=== PATIENT | female | born 1960 | race Caucasian/White ===

== ENCOUNTER 2019-05-21 11:13 | Emergency (ER) | payer MEDICAID ==
[~2019-05-21] VITALS: Ht 157.5 cm; Wt 83.0 kg
[2019-05-21 11:20] VITALS: BP 167/86
--- NOTE | 2019-05-21 11:23 | NUR ---
58/F BIB FAMILY C/O LT FOOT PAIN & SWELLING X 4 DAYS. DENIES INJURY. TOOK PRESCRIBED 800MG IBUPROFEN 10 MIN TRUST ADMINISTRATOR. PATIENT STATES PAIN OF 10/10 AT THIS TIME.PATIENT POSITIONED FOR COMFORT; HOB ELEVATED; BEDRAILS UP X1; BED DOWN. ER MD MADE AWARE OF PT STATUS.
--- NOTE | 2019-05-21 11:27 | NUR ---
Patient being evaluated by DR CAPPS at bedside.
--- NOTE | 2019-05-21 11:50 | NUR ---
DR CAPPS RE-EVALUATING PT AT BEDSIDE.
[2019-05-21 12:05] VITALS: BP 167/86
== END 2019-05-21 12:06 | disposition home or self-care (01) ==
LOC: MED 11:13
DX: M72.2 Plantar fascial fibromatosis (principal); Z85.3 Personal history of malignant neoplasm of breast; Z98.890 Other specified postprocedural states
CPT/HCPCS: 73630; 99283; Q0092

== ENCOUNTER 2020-08-09 14:16 | Emergency (ER) | payer MEDICAID ==
[~2020-08-09] VITALS: Ht 157.5 cm; Wt 81.2 kg
[2020-08-09 14:22] VITALS: BP 157/93
[2020-08-09 16:56] LABS: BASOPHILS # (AUTO) 0.1 K/uL (0.00-0.22); BASOPHILS % (AUTO) 0.8 % (0.0-2.0); EOSINOPHILS # (AUTO) 0.1 K/uL (0-0.4); EOSINOPHILS % (AUTO) 1.1 % (0.0-4.0); HEMATOCRIT 40.2 % (36-48); HEMOGLOBIN 13.6 g/dL (12.0-16.0); LYMPHOCYTES # (AUTO) 3.7 K/uL (2.5-16.5); LYMPHOCYTES % (AUTO) 36.8 % (20.5-51.1); MEAN CORPUSCULAR HEMOGLOBIN 29 pg (27-31); MEAN CORPUSCULAR HGB CONC 34 g/dL (33-37); MEAN CORPUSCULAR VOLUME 86.6 fL (80-94); MONOCYTES # (AUTO) 0.7 K/uL (0.8-1.0); MONOCYTES % (AUTO) 6.6 % (1.7-9.3); NEUTROPHILS # (AUTO) 5.5 K/uL (1.8-7.7); NEUTROPHILS % (AUTO) 54.7 % (42.2-75.2); PLATELET COUNT (AUTO) 191 K/uL (140-450); RED BLOOD CELL COUNT(AUTO) 4.65 MIL/uL (4.20-5.40); WHITE BLOOD COUNT (AUTO) 10.1 K/uL (4.8-10.8)
[2020-08-09 17:17] LABS: ANION GAP 11.2 (8-16); CARBON DIOXIDE 27.5 mmol/L (21-32); CREATININE 0.8 mg/dL (0.6-1.3); POTASSIUM 4.7 mmol/L (3.5-5.1); TOTAL BILIRUBIN 0.4 mg/dL (0.0-1.0)
[2020-08-09 18:07] VITALS: BP 157/93
--- NOTE | 2020-08-09 18:07 | NUR ---
Patient discharged with v/s stable. Written and verbal after care instructions given and explained. Patient alert, oriented and verbalized understanding of instructions. Ambulatory with steady gait. All questions addressed prior to discharge. ID band removed. Patient advised to follow up with PMD. Rx of Colace given. Patient educated on indication of medication including possible reaction and side effects. Opportunity to ask questions provided and answered.
== END 2020-08-09 18:07 | disposition home or self-care (01) ==
LOC: MED 14:16
DX: K52.89 Other specified noninfective gastroenteritis and colitis (principal); K64.4 Residual hemorrhoidal skin tags
CPT/HCPCS: 36415; 80053; 83690; 84484; 85025; 99285

== ENCOUNTER 2020-10-25 16:04 | Emergency (ER) | payer MEDICAID ==
[~2020-10-25] VITALS: Ht 157.5 cm; Wt 76.7 kg
[2020-10-25 16:26] VITALS: BP 120/73
--- NOTE | 2020-10-25 17:21 | NUR ---
PATIENT AMBULATED TO BED 12 WITH STEADY GAIT
--- NOTE | 2020-10-25 17:30 | NUR ---
59 Y/O F BIB SELF FROM HOME, PATIENT PRESENTS TO ED WITH R ARM PAIN AND ITCHING THAT RADIATES TO THE REST OF THE BODY. PT STATES SHE HAD HER SECOND DOSE OF THE PFIZER ON HER R ARM AND HAS BEEN HAVING HIVES ON HER BODY AND ITCHING. PT HAS NO EDEMA, SWELLING, OR REDNESS AT SITE OR ON HER EXTREMITIES. DENIES N/V/D; SKIN IS PINK/WARM/DRY; AAOX4 WITH EVEN AND STEADY GAIT; LUNGS CLEAR BL; HR EVEN AND REGULAR; PT DENIES ANY FEVER, CP, SOB, OR COUGH AT THIS TIME; PATIENT STATES PAIN OF 5/10 AT THIS TIME; VSS; PATIENT POSITIONED FOR COMFORT; HOB ELEVATED; BEDRAILS UP X2; BED DOWN. ER MADE AWARE OF PT STATUS. PMH: BREAST CANCER NKA MED: DOTTIEOPHEN
[2020-10-25] MEDS ORDERED: IBUP-2213 PO (19:06)
[2020-10-25] MEDS ORDERED: CEPH-588 PO (19:06)
--- NOTE | 2020-10-25 19:07 | NUR ---
REPORT RECEIVED FROM IKE HARDWICK FOR TRANSFER OF CARE.
--- NOTE | 2020-10-25 19:08 | NUR ---
REPORT GIVEN TO MILADYS RAMIRES. TRANSFER OF CARE AT THIS TIME.
[2020-10-25 19:30] VITALS: BP 139/84
--- NOTE | 2020-10-25 19:30 | NUR ---
Patient discharged with v/s stable. Written and verbal after care instructions given and explained. Patient alert, oriented and verbalized understanding of instructions. Ambulatory with steady gait. All questions addressed prior to discharge. ID band removed. Patient advised to follow up with PMD. Rx of KEFLEX, IBUPROFEN given. Patient educated on indication of medication including possible reaction and side effects. Opportunity to ask questions provided and answered.
--- NOTE | 2020-10-28 16:24 | NUR ---
LATE ENTRY---Culture results received from lab. Results shown to . No new orders needed at this time. Treatment appropriate.
== END 2020-10-25 19:30 | disposition home or self-care (01) ==
LOC: MED 16:04
DX: T88.7XXA Unspecified adverse effect of drug or medicament, initial encounter (principal); N39.0 Urinary tract infection, site not specified; T50.B95A Adverse effect of other viral vaccines, initial encounter; Y92.89 Other specified places as the place of occurrence of the external cause
CPT/HCPCS: 81002; 87086; 99283

== ENCOUNTER 2020-12-24 14:03 | Emergency (ER) | payer MEDICAID ==
[~2020-12-24] VITALS: Ht 157.5 cm; Wt 77.6 kg
[~2020-12-24 14:03] MED LIST: CEPH-588 PO; IBUP-2213 PO
[2020-12-24 14:13] VITALS: BP 156/75
--- NOTE | 2020-12-24 14:20 | NUR ---
Patient to lobby waiting for bed to be available.
--- NOTE | 2020-12-24 14:25 | NUR ---
EMT at bedside for EKG.
--- NOTE | 2020-12-24 14:30 | NUR ---
60 YEAR OLD FEMALE COMPLAINS OF CHEST PAIN AND HEADACHE X 4 DAYS. PT DENIES SOB, HAS COUGH. PT PLACED ON MONITOR WITH VS STABLE. PT AOX4, BREATHING EVEN AND UNLABORED, SKIN WARM AND DRY. BED IN LOWEST POSITION, LOCKED, BED RAIL UPX1. PMH - BREAST CANCER ALLERGIES - NKA
--- NOTE | 2020-12-24 14:41 | NUR ---
pt ambulated to bed 09.
--- NOTE | 2020-12-24 15:18 | NUR ---
MARCI SWAB SENT TO LAB
[2020-12-24 15:35] LABS: BASOPHILS # (AUTO) 0.1 K/uL (0.00-0.22); BASOPHILS % (AUTO) 0.5 % (0.0-2.0); EOSINOPHILS # (AUTO) 0.1 K/uL (0-0.4); EOSINOPHILS % (AUTO) 1.3 % (0.0-4.0); HEMATOCRIT 39.4 % (36-48); HEMOGLOBIN 13.3 g/dL (12.0-16.0); LYMPHOCYTES # (AUTO) 2.1 K/uL (2.5-16.5); LYMPHOCYTES % (AUTO) 21.4 % (20.5-51.1); MEAN CORPUSCULAR HEMOGLOBIN 30 pg (27-31); MEAN CORPUSCULAR HGB CONC 34 g/dL (33-37); MONOCYTES # (AUTO) 0.9 K/uL (0.8-1.0); MONOCYTES % (AUTO) 9.2 % (1.7-9.3); NEUTROPHILS # (AUTO) 6.7 K/uL (1.8-7.7); NEUTROPHILS % (AUTO) 67.6 % (42.2-75.2); PLATELET COUNT (AUTO) 177 K/uL (140-450); RED BLOOD CELL COUNT(AUTO) 4.48 MIL/uL (4.20-5.40); RED CELL DISTRIBUTION WIDTH 13.4 % (11.6-13.7)
[2020-12-24 15:49] LABS: ALBUMIN 3.8 g/dL (3.4-5.0); ANION GAP 11.1 (8-16); CARBON DIOXIDE 26.8 mmol/L (21-32); CREATININE 0.8 mg/dL (0.6-1.3); POTASSIUM 3.9 mmol/L (3.5-5.1); TOTAL BILIRUBIN 0.3 mg/dL (0.0-1.0)
[2020-12-24 16:45] VITALS: BP 145/71
--- NOTE | 2020-12-24 16:45 | NUR ---
Patient discharged with v/s stable. Written and verbal after care instructions about cough given and explained. Patient verbalized understanding. Ambulatory with steady gait. All questions addressed prior to discharge. Advised to follow up with PMD.
== END 2020-12-24 16:45 | disposition home or self-care (01) ==
LOC: MED 14:03
DX: R05 Cough (principal); Z20.822 Contact with and (suspected) exposure to COVID-19; R09.89 Other specified symptoms and signs involving the circulatory and respiratory systems; R09.81 Nasal congestion; Z79.899 Other long term (current) drug therapy; Z98.890 Other specified postprocedural states; Z90.710 Acquired absence of both cervix and uterus; Z85.3 Personal history of malignant neoplasm of breast
CPT/HCPCS: 36415; 71045; 80053; 84484; 85025; 93005; 99285

== ENCOUNTER 2021-01-21 15:29 | Emergency (ER) | payer MEDICAID ==
[~2021-01-21] VITALS: Ht 157.5 cm; Wt 78.9 kg
[2021-01-21 15:47] VITALS: BP 135/80
--- NOTE | 2021-01-21 18:13 | NUR ---
Lab at bedside.
[2021-01-21 18:34] LABS: BASOPHILS % (AUTO) 0.4 % (0.0-2.0); EOSINOPHILS # (AUTO) 0.2 K/uL (0-0.4); HEMATOCRIT 40.9 % (36-48); HEMOGLOBIN 13.6 g/dL (12.0-16.0); LYMPHOCYTES # (AUTO) 2.3 K/uL (2.5-16.5); LYMPHOCYTES % (AUTO) 27.7 % (20.5-51.1); MEAN CORPUSCULAR HEMOGLOBIN 30 pg (27-31); MEAN CORPUSCULAR HGB CONC 33 g/dL (33-37); MEAN CORPUSCULAR VOLUME 88.9 fL (80-94); MONOCYTES # (AUTO) 0.6 K/uL (0.8-1.0); MONOCYTES % (AUTO) 7.6 % (1.7-9.3); NEUTROPHILS # (AUTO) 5.1 K/uL (1.8-7.7); NEUTROPHILS % (AUTO) 62.3 % (42.2-75.2); PLATELET COUNT (AUTO) 193 K/uL (140-450); RED BLOOD CELL COUNT(AUTO) 4.59 MIL/uL (4.20-5.40); RED CELL DISTRIBUTION WIDTH 13.4 % (11.6-13.7); WHITE BLOOD COUNT (AUTO) 8.2 K/uL (4.8-10.8)
--- NOTE | 2021-01-21 18:47 | NUR ---
Pt ambulated to bed 07.
[2021-01-21 19:04] LABS: ALBUMIN 3.8 g/dL (3.4-5.0); CARBON DIOXIDE 26.8 mmol/L (21-32); CREATININE 0.8 mg/dL (0.6-1.3); TOTAL BILIRUBIN 0.4 mg/dL (0.0-1.0)
[2021-01-21 19:09] LABS: ANION GAP 14.5 (8-16); POTASSIUM 4.3 mmol/L (3.5-5.1)
--- NOTE | 2021-01-21 19:55 | NUR ---
60 YO/F BIB SELF W CO R SIDED FLANK PAIN SHARP 10/10 RADIATING TO ABDOMEN THAT WORSENS W MOVEMENT BEGINNING AT 0800 TODAY. PATIENT ALSO REPORTS URINARY FREQUENCY AND RETENTION, DENIES BURNING URINATION. PATIENT ALSO REPORTS L LEG PAIN AND SWELLING 8/10 THAT WORSENS W MOVEMENT. PATIENT DENIES FEVER, N/V/D. DENIES CHEST PAIN OR SOB. PATIENT DENIES ANY INJURIES. BOWEL SOUNDS PRESENT THROUGH OUT. SKIN WARM AND DRY. CAP REFILS <3SEC UPPER AND LOWER EXTREMITIES. PATIENT LAYING IN BED LOCKED IN LOWEST POSITION, X1 SIDE RAIL UP. BREATHING EVEN AND UNLABORED. CONNECTED TO MONITOR W VSS. PMH: L BREAST CANCER NKA
[2021-01-21 20:19] LABS: APPEARANCE,URINE CLEAR (CLEAR); BILIRUBIN,URINE NEGATIVE (NEGATIVE); BLOOD, URINE NEGATIVE (NEGATIVE); COLOR,URINE YELLOW (YELLOW); LEUKOCYTE ESTERASE ,URINE NEGATIVE (NEGATIVE); NITRITE, URINE NEGATIVE (NEGATIVE); UGLUCOSE NEGATIVE (NEGATIVE)
[2021-01-21] MEDS ORDERED: NACL 0.9% 1,000 ML IV ONE (20:30)
[2021-01-21] MEDS ORDERED: ONDANSETRON 4 MG/2 ML VIAL IVP ONE (20:30)
[2021-01-21] MEDS ORDERED: MORPHINE SULFATE 4 MG/ML SYR IVP ONE (20:30)
[2021-01-21] MEDS ORDERED: ACET-1182 PO (22:07)
[2021-01-21] MEDS ORDERED: IBUP-2213 PO (22:07)
--- NOTE | 2021-01-21 22:12 | NUR ---
PATIENT AMBULATED TO BATHROOM W STEADY GAIT.
[2021-01-21 23:00] VITALS: BP 149/73
--- NOTE | 2021-01-21 23:00 | NUR ---
Patient discharged with v/s stable. Written and verbal after care instructions given and explained. Patient alert, oriented and verbalized understanding of instructions. Ambulatory with steady gait. All questions addressed prior to discharge. ID band removed. Patient advised to follow up with PMD. Rx of ACETAMINOPHEN, IBUPROFEN given. Patient educated on indication of medication including possible reaction and side effects. Opportunity to ask questions provided and answered.
== END 2021-01-21 23:00 | disposition home or self-care (01) ==
LOC: MED 15:29
DX: R10.9 Unspecified abdominal pain (principal); M79.605 Pain in left leg; Z85.3 Personal history of malignant neoplasm of breast; Z90.710 Acquired absence of both cervix and uterus; Z79.899 Other long term (current) drug therapy
CPT/HCPCS: 36415; 74177; 80053; 81003; 83690; 85025; 87086; 93971; 96361; 96374; 96375; 99285; J2270; J2405; J7030; Q9967

== ENCOUNTER 2021-05-01 22:08 | Emergency (ER) | payer MEDICAID ==
[~2021-05-01] VITALS: Ht 157.5 cm; Wt 68.0 kg
[~2021-05-01 22:08] MED LIST changes: +ACET-1182 PO
[2021-05-01 22:28] VITALS: BP 150/77
--- NOTE | 2021-05-01 22:36 | NUR ---
PATIENT TO THE BATHROOM AMBULATORY AND WILL GO TO THE LOBBY
[2021-05-01] MEDS ORDERED: NACL 0.9% 1,000 ML IV ONE (23:30)
[2021-05-01 23:54] LABS: BASOPHILS # (AUTO) 0.1 K/uL (0.00-0.22); BASOPHILS % (AUTO) 0.5 % (0.0-2.0); EOSINOPHILS # (AUTO) 0.2 K/uL (0-0.4); EOSINOPHILS % (AUTO) 1.8 % (0.0-4.0); HEMATOCRIT 39.5 % (36-48); HEMOGLOBIN 13.2 g/dL (12.0-16.0); LYMPHOCYTES # (AUTO) 3.9 K/uL (2.5-16.5); LYMPHOCYTES % (AUTO) 35.4 % (20.5-51.1); MEAN CORPUSCULAR HEMOGLOBIN 29 pg (27-31); MEAN CORPUSCULAR HGB CONC 33 g/dL (33-37); MEAN CORPUSCULAR VOLUME 86.2 fL (80-94); MONOCYTES # (AUTO) 0.8 K/uL (0.8-1.0); NEUTROPHILS # (AUTO) 6.1 K/uL (1.8-7.7); NEUTROPHILS % (AUTO) 55.3 % (42.2-75.2); PLATELET COUNT (AUTO) 197 K/uL (140-450); RED BLOOD CELL COUNT(AUTO) 4.59 MIL/uL (4.20-5.40); RED CELL DISTRIBUTION WIDTH 13.4 % (11.6-13.7); WHITE BLOOD COUNT (AUTO) 11.1 K/uL (4.8-10.8)
[2021-05-01 23:54] LABS: APPEARANCE,URINE CLEAR (CLEAR); BILIRUBIN,URINE NEGATIVE (NEGATIVE); BLOOD, URINE NEGATIVE (NEGATIVE); COLOR,URINE YELLOW (YELLOW); LEUKOCYTE ESTERASE ,URINE TRACE (NEGATIVE); NITRITE, URINE NEGATIVE (NEGATIVE); UGLUCOSE NEGATIVE (NEGATIVE)
[2021-05-02 00:13] LABS: ALBUMIN 3.7 g/dL (3.4-5.0); ANION GAP 12.2 (8-16); CARBON DIOXIDE 29.7 mmol/L (21-32); POTASSIUM 4.9 mmol/L (3.5-5.1); TOTAL BILIRUBIN 0.3 mg/dL (0.0-1.0)
[2021-05-02] MEDS ORDERED: CEPH-588 PO (01:35)
[2021-05-02] MEDS ORDERED: ONDA-188 SL (01:35)
[2021-05-02] MEDS ORDERED: ACETAMINOPHEN EXTRA STRENGTH 500 MG TAB PO ONE (01:40)
[2021-05-02] MEDS ORDERED: ONDANSETRON 4 MG ODT PO ONE (01:40)
[2021-05-02] MEDS ORDERED: cephALEXin 500 MG CAP PO ONE (01:40)
[2021-05-02 01:55] VITALS: BP 132/72
--- NOTE | 2021-05-02 02:00 | NUR ---
PATIENT DC HOME STABLE NOT COMPLAINING OF PAIN VITALS SIGNS IN NORMAL LIMITS ALL DC INSTRUTION GAVE TO THE PATIENT AND EXPLAINED WE RECOMENDED TO SEE HER ONCOLOGYST //Sudheer RN
--- NOTE | 2021-05-05 00:27 | NUR ---
LATE ENTRY- NS BOLUS DISCONTINUED AT 0030
== END 2021-05-02 02:00 | disposition home or self-care (01) ==
LOC: MED 22:08
DX: N39.0 Urinary tract infection, site not specified (principal); Z20.822 Contact with and (suspected) exposure to COVID-19; R53.1 Weakness; Z85.9 Personal history of malignant neoplasm, unspecified; Z79.899 Other long term (current) drug therapy
CPT/HCPCS: 36415; 71045; 80053; 81001; 84484; 85025; 87086; 87426; 93005; 96360; 99285; J7030; Q0162

== ENCOUNTER 2021-10-31 19:34 | Emergency (ER) | payer MEDICAID ==
[~2021-10-31] VITALS: Ht 154.9 cm; Wt 80.7 kg
[~2021-10-31 19:34] MED LIST changes: +ONDA-188 SL
[2021-10-31 19:54] VITALS: BP 132/70
--- NOTE | 2021-10-31 20:00 | NUR ---
PATIENT TO THE BATHROOM FOR URINE COLLECTION
--- NOTE | 2021-10-31 20:05 | NUR ---
PT AMBULATED TO BED #6
--- NOTE | 2021-10-31 20:14 | NUR ---
LAB AT BEDSIDE
--- NOTE | 2021-10-31 20:21 | NUR ---
60 YO F BIB DAUGHTER FROM HOME W C/O OF HIGH BLOOD PRESSURE STARTED ON SUNDAY AND WENT TO CLINIC SUNDAY AND WAS GIVEN 12.5 HYDROCHLOROTHIAZIDE BUT THE MEDICATION CAUSES HER TO FEEL NAUSEATED. PT REPORTS COPPOLA, DIZZINESS, AND DIFFICULTY WALKING. PMH: DENIES NKDA
[2021-10-31 20:24] LABS: BASOPHILS # (AUTO) 0.1 K/uL (0.00-0.22); BASOPHILS % (AUTO) 0.7 % (0.0-2.0); EOSINOPHILS # (AUTO) 0.2 K/uL (0-0.4); EOSINOPHILS % (AUTO) 2.3 % (0.0-4.0); HEMOGLOBIN 13.8 g/dL (12.0-16.0); LYMPHOCYTES # (AUTO) 3.2 K/uL (2.5-16.5); LYMPHOCYTES % (AUTO) 31.3 % (20.5-51.1); MEAN CORPUSCULAR HEMOGLOBIN 28 pg (27-31); MEAN CORPUSCULAR HGB CONC 34 g/dL (33-37); MEAN CORPUSCULAR VOLUME 83.5 fL (80-94); MONOCYTES # (AUTO) 0.6 K/uL (0.8-1.0); MONOCYTES % (AUTO) 6.2 % (1.7-9.3); NEUTROPHILS % (AUTO) 59.5 % (42.2-75.2); PLATELET COUNT (AUTO) 231 K/uL (140-450); RED BLOOD CELL COUNT(AUTO) 4.91 MIL/uL (4.20-5.40); RED CELL DISTRIBUTION WIDTH 13.6 % (11.6-13.7); WHITE BLOOD COUNT (AUTO) 10.1 K/uL (4.8-10.8)
[2021-10-31 20:42] LABS: ALBUMIN 4.1 g/dL (3.4-5.0); ANION GAP 11.5 (8-16); CARBON DIOXIDE 29.3 mmol/L (21-32); CREATININE 0.8 mg/dL (0.6-1.3); POTASSIUM 3.8 mmol/L (3.5-5.1); TOTAL BILIRUBIN 0.5 mg/dL (0.0-1.0)
[2021-10-31] MEDS ORDERED: ONDANSETRON 4 MG TAB PO ONE (21:25)
[2021-10-31] MEDS ORDERED: KETOROLAC 60 MG/2 ML VIAL IM ONE (21:25)
[2021-10-31] MEDS ORDERED: MECLIZINE 25 MG TAB PO ONE (21:25)
[2021-10-31] MEDS ORDERED: ONDA8TAB87 PO (22:13)
[2021-10-31] MEDS ORDERED: CIPR500T4 PO (22:13)
[2021-10-31] MEDS ORDERED: MECL-303 PO (22:13)
[2021-10-31] MEDS ORDERED: ACET-8386 PO (22:13)
[2021-10-31] MEDS ORDERED: IBUP-2213 PO (22:13)
--- NOTE | 2021-10-31 22:42 | NUR ---
Patient discharged with v/s stable. Written and verbal after care instructions given and explained. Patient alert, oriented and verbalized understanding of instructions. Ambulatory with steady gait. All questions addressed prior to discharge. ID band removed. Patient advised to follow up with PMD. Rx of HYDROCODONE CIPRO IBUPROFEN MECLIZINE ZOFRAN given. Patient educated on indication of medication including possible reaction and side effects. Opportunity to ask questions provided and answered.
== END 2021-10-31 22:42 | disposition home or self-care (01) ==
LOC: MED 19:34
DX: R51.9 Headache, unspecified (principal); R42 Dizziness and giddiness; R11.0 Nausea; R07.9 Chest pain, unspecified; R06.02 Shortness of breath; R30.0 Dysuria; I10 Essential (primary) hypertension; Z79.891 Long term (current) use of opiate analgesic; Z79.899 Other long term (current) drug therapy; Z79.1 Long term (current) use of non-steroidal anti-inflammatories (NSAID); Z79.2 Long term (current) use of antibiotics
CPT/HCPCS: 36415; 70450; 71045; 80053; 83880; 84484; 85025; 93005; 96372; 99285; J1885; J8597; Q0162

== ENCOUNTER 2022-08-16 18:54 | Emergency (ER) | payer MEDICAID ==
[~2022-08-16] VITALS: Ht 157.5 cm; Wt 78.9 kg
[~2022-08-16 18:54] MED LIST changes: +ACET-8905 PO; +CIPR500T4 PO; +MECL-303 PO; +ONDA8TAB87 PO
[2022-08-16 19:08] VITALS: BP 134/70
--- NOTE | 2022-08-16 19:38 | NUR ---
Pt to bed 9, patient on monitor.
--- NOTE | 2022-08-16 19:41 | NUR ---
Dr. Yi assessing patient.
--- NOTE | 2022-08-16 19:43 | NUR ---
Patient resting in bed, A/Ox4, chest rise and fall symmetrical, no s/s of distress, patient on monitor.
[2022-08-16] MEDS ORDERED: ALBUTEROL 0.083% 2.5 MG/3 ML NEBU INH ONE (19:50)
[2022-08-16] MEDS ORDERED: ALBU0.0912 IH (20:24)
[2022-08-16] MEDS ORDERED: DOXY-690 PO (20:24)
[2022-08-16] MEDS ORDERED: ROBAC PO (20:24)
[2022-08-16] MEDS ORDERED: PRON INH (20:26)
--- NOTE | 2022-08-16 20:44 | NUR ---
Patient resting in bed, A/Ox4, chest rise and fall symmetrical, no c/o pain or s/s of distress, patient on monitor.
[2022-08-16 20:45] VITALS: BP 135/71
== END 2022-08-16 20:45 | disposition home or self-care (01) ==
LOC: MED 18:54
DX: R05.9 Cough, unspecified (principal); R06.02 Shortness of breath; J40 Bronchitis, not specified as acute or chronic; Z20.822 Contact with and (suspected) exposure to COVID-19; I10 Essential (primary) hypertension; Z85.3 Personal history of malignant neoplasm of breast; Z79.899 Other long term (current) drug therapy; Z79.2 Long term (current) use of antibiotics; Z79.891 Long term (current) use of opiate analgesic; Z79.1 Long term (current) use of non-steroidal anti-inflammatories (NSAID)
CPT/HCPCS: 71045; 87426; 87804; 94640; 99284; J7613; Q0092

== ENCOUNTER 2022-11-23 14:43 | Emergency (ER) | payer MEDICAID ==
[~2022-11-23] VITALS: Ht 157.5 cm; Wt 80.7 kg
[~2022-11-23 14:43] MED LIST changes: +ALBU0.0912 IH; +DOXY-690 PO; +PRON INH; +ROBAC PO
[2022-11-23 15:16] VITALS: BP 130/84
[2022-11-23] MEDS ORDERED: ACETAMINOPHEN 325 MG TAB PO ONE (15:40)
[2022-11-23 18:09] VITALS: BP 129/82
--- NOTE | 2022-11-23 18:09 | NUR ---
Patient discharged with v/s stable. Written and verbal after care instructions given and explained. Patient verbalized understanding. Ambulatory with steady gait. All questions addressed prior to discharge. Advised to follow up with PMD.
--- NOTE | 2022-11-23 18:28 | NUR ---
Note rose in EDM - 11/23/22 at 1828 by [email or web address] Patient discharged with v/s stable. Written and verbal after care instructions given and explained. Patient verbalized understanding. Ambulatory with steady gait. All questions addressed prior to discharge. Advised to follow up with PMD.
== END 2022-11-23 18:09 | disposition home or self-care (01) ==
LOC: MED 14:43
DX: M77.31 Calcaneal spur, right foot (principal); I10 Essential (primary) hypertension; M25.571 Pain in right ankle and joints of right foot; Z79.899 Other long term (current) drug therapy; Z79.1 Long term (current) use of non-steroidal anti-inflammatories (NSAID); Z79.2 Long term (current) use of antibiotics
CPT/HCPCS: 73610; 73630; 99284

== ENCOUNTER 2023-07-17 21:23 | Emergency (ER) | payer MEDICAID ==
[~2023-07-17] VITALS: Ht 157.5 cm; Wt 80.3 kg
[2023-07-17 21:25] VITALS: BP 140/75; PULSE 70; RESP 16; TEMP 97.8; O2SAT 100
[2023-07-18 01:42] LABS: BASOPHILS # (AUTO) 0.1 K/uL (0.00-0.22); BASOPHILS % (AUTO) 1.2 % (0.0-2.0); EOSINOPHILS # (AUTO) 0.2 K/uL (0-0.4); EOSINOPHILS % (AUTO) 1.7 % (0.0-4.0); LYMPHOCYTES # (AUTO) 4.5 K/uL (2.5-16.5); LYMPHOCYTES % (AUTO) 41.1 % (20.5-51.1); MEAN CORPUSCULAR HEMOGLOBIN 28 pg (27-31); MEAN CORPUSCULAR HGB CONC 34 g/dL (33-37); MEAN CORPUSCULAR VOLUME 82.6 fL (80-94); MONOCYTES # (AUTO) 0.6 K/uL (0.8-1.0); MONOCYTES % (AUTO) 5.5 % (1.7-9.3); NEUTROPHILS # (AUTO) 5.5 K/uL (1.8-7.7); NEUTROPHILS % (AUTO) 50.5 % (42.2-75.2); PLATELET COUNT (AUTO) 235 K/uL (140-450); RED CELL DISTRIBUTION WIDTH 14.2 % (11.6-13.7); WHITE BLOOD COUNT (AUTO) 10.9 K/uL (4.8-10.8)
[2023-07-18 01:53] LABS: ANION GAP 10.6 (8-16); CALCIUM 9.5 mg/dL (8.5-10.1); CARBON DIOXIDE 28.5 mmol/L (21-32); CREATININE 0.8 mg/dL (0.6-1.3); POTASSIUM 4.1 mmol/L (3.5-5.1)
[2023-07-18] MEDS: KETOROLAC 30 MG/ML VIAL IM ONE (03:45)
== END 2023-07-18 03:45 | disposition home or self-care (01) ==
LOC: MED 21:23
DX: F41.9 Anxiety disorder, unspecified (principal); R07.9 Chest pain, unspecified; R51.9 Headache, unspecified; I10 Essential (primary) hypertension; Z79.899 Other long term (current) drug therapy; Z79.2 Long term (current) use of antibiotics; Z79.1 Long term (current) use of non-steroidal anti-inflammatories (NSAID)
CPT/HCPCS: 36415; 71045; 80048; 84484; 85025; 93005; 96372; 99285; J1885

== ENCOUNTER 2023-11-20 11:50 | Emergency (ER) | payer MEDICAID, OTHER ==
[~2023-11-20] VITALS: Ht 157.5 cm; Wt 79.2 kg
[2023-11-20 12:12] VITALS: BP 167/70; PULSE 71; RESP 16; TEMP 97.8; O2SAT 98
[2023-11-20 13:15] VITALS: O2SAT 98
[2023-11-20] MEDS ORDERED: HYDROcodone/APAP 5/325 MG 1 TAB TAB ONE (13:26)
[2023-11-20] MEDS: HYDROcodone/APAP 5/325 MG 1 TAB TAB PO ONE (13:36)
[2023-11-20] MEDS ORDERED: ACET-8905 PO (14:27)
[2023-11-20 14:57] VITALS: BP 156/82; PULSE 66; RESP 19; TEMP 98; O2SAT 99
== END 2023-11-20 14:57 | disposition home or self-care (01) ==
LOC: MED 11:50
DX: S30.0XXA Contusion of lower back and pelvis, initial encounter (principal); S40.011A Contusion of right shoulder, initial encounter; S09.90XA Unspecified injury of head, initial encounter; W17.89XA Other fall from one level to another, initial encounter; Y93.89 Activity, other specified; Y92.89 Other specified places as the place of occurrence of the external cause; Y99.8 Other external cause status
CPT/HCPCS: 73030; 99283

== ENCOUNTER 2024-04-08 12:47 | Emergency (ER) | payer MEDICAID, OTHER ==
[~2024-04-08] VITALS: Ht 157.5 cm; Wt 72.6 kg
[2024-04-08 13:25] VITALS: BP 124/80; PULSE 64; RESP 18; TEMP 97.7; O2SAT 100
[2024-04-08 14:31] LABS: APPEARANCE,URINE CLEAR (CLEAR); BILIRUBIN,URINE NEGATIVE (NEGATIVE); BLOOD, URINE NEGATIVE (NEGATIVE); COLOR,URINE YELLOW (YELLOW); LEUKOCYTE ESTERASE ,URINE TRACE (NEGATIVE); NITRITE, URINE NEGATIVE (NEGATIVE); PH,URINE 6.5 (5.0-9.0); PROTEIN,URINE NEGATIVE (NEGATIVE); UGLUCOSE NEGATIVE (NEGATIVE); UROBILINOGEN,URINE 0.2 EU/dL (0.2 - 1)
[2024-04-08 14:33] LABS: BASOPHILS # (AUTO) 0.1 K/uL (0.00-0.22); BASOPHILS % (AUTO) 0.5 % (0.0-2.0); EOSINOPHILS # (AUTO) 0.2 K/uL (0-0.4); EOSINOPHILS % (AUTO) 1.6 % (0.0-4.0); HEMATOCRIT 39.9 % (36-48); HEMOGLOBIN 13.2 g/dL (12.0-16.0); LYMPHOCYTES # (AUTO) 3.1 K/uL (2.5-16.5); LYMPHOCYTES % (AUTO) 31.7 % (20.5-51.1); MEAN CORPUSCULAR HEMOGLOBIN 28 pg (27-31); MEAN CORPUSCULAR HGB CONC 33 g/dL (33-37); MONOCYTES # (AUTO) 0.7 K/uL (0.8-1.0); NEUTROPHILS # (AUTO) 5.8 K/uL (1.8-7.7); NEUTROPHILS % (AUTO) 59.2 % (42.2-75.2); PLATELET COUNT (AUTO) 214 K/uL (140-450); RED BLOOD CELL COUNT(AUTO) 4.75 MIL/uL (4.20-5.40); RED CELL DISTRIBUTION WIDTH 14.4 % (11.6-13.7); WHITE BLOOD COUNT (AUTO) 9.8 K/uL (4.8-10.8)
[2024-04-08 14:55] LABS: BACTERIA,URINE FEW /HPF (None Seen); RBC,URINE 0-5 /HPF (0-5); SQUAMOUS EPITHELIAL CELL,UR 0-3 (FEW) /LPF (0-3 (FEW))
[2024-04-08 14:58] LABS: ALANINE AMINOTRANSFERASE 31 U/L (12-78); ALBUMIN 3.8 g/dL (3.4-5.0); ALKALINE PHOSPHATASE 91 U/L (50-136); ANION GAP 7.6 (8-16); ASPARTATE AMINOTRANSFERASE 20 U/L (15-37); CARBON DIOXIDE 31.6 mmol/L (21-32); CHLORIDE 102 mmol/L (98-107); CREATININE 0.8 mg/dL (0.6-1.3); GFR ARICAN-AMERICAN 93 mL/min (>90); GFR NON ARICAN-AMERICAN 77 mL/min (>90); GLUCOSE 113 mg/dL (74-106); LIPASE 36 U/L (16-77); POTASSIUM 4.2 mmol/L (3.5-5.1); SODIUM SERUM 137 mmol/L (136-145); TOTAL BILIRUBIN 0.5 mg/dL (0.0-1.0); TOTAL PROTEIN, SERUM 7.9 g/dL (6.4-8.2); UREA NITROGEN, BLOOD 14 mg/dL (7-18)
[2024-04-08] MEDS: NACL 0.9% 500 ML IV ONE (15:43)
[2024-04-08] MEDS: METOCLOPRAMIDE 10 MG/2 ML INJ VIAL IVP ONE (15:44)
[2024-04-08] MEDS: KETOROLAC 30 MG/ML VIAL IVP ONE (15:48)
[2024-04-08] MEDS ORDERED: PIPERACILLIN/TAZOBACTAM 2.25 GM VIAL IV ONE (16:56)
[2024-04-08] MEDS: PIPERACILLIN/TAZOBACTAM 4.5 GM in DEXTROSE 5% 100 ML IV ONE (17:04)
[2024-04-08 18:05] VITALS: BP 126/68; PULSE 58; RESP 17; TEMP 97.7; O2SAT 98
== END 2024-04-08 18:12 | disposition home or self-care (01) ==
LOC: MED 12:47
DX: K37 Unspecified appendicitis (principal); R42 Dizziness and giddiness; R11.0 Nausea; I10 Essential (primary) hypertension; E11.9 Type 2 diabetes mellitus without complications; Z85.3 Personal history of malignant neoplasm of breast; Z79.899 Other long term (current) drug therapy
CPT/HCPCS: 36415; 71045; 74176; 80053; 81001; 83690; 84484; 85025; 87086; 93005; 96361; 96365; 96375; 99285; J1885; J2543; J2765; J7030